=== PATIENT | male | born 1985 | race Caucasian/White ===

== ENCOUNTER 2019-06-20 12:59 | Emergency (ER) | payer BC, OTHER ==
[2019-06-20 13:39] VITALS: BP 177/101
[2019-06-20] MEDS ORDERED: Albuterol HFA INHALER* 8 gm MDI INH ONE (13:41)
--- NOTE | 2019-06-20 13:41 | UC ---
Respiratory Complaint HPI - HPI Summary HPI Summary: 34-year-old smoker who has had a cold over the past 2 weeks which has recovered and he continues with a mild cough however he needs a note for work stating that he can return to work. He had Covid testing last week and the results were back as negative 2 days ago. He states his employment required that he be cleared. I did advise him that we can state that his Covid test on the was negative. The patient denies any fever or chills, no sore throat. He states he only has a residual cough and he thinks it's more his smoker's cough than anything else. - History of Current Complaint Chief Complaint: UCGeneralIllness Stated Complaint: CONGEST,DRY COUGH Time Seen by Provider: 06/20/19 13:02 Hx Obtained From: Patient Onset/Duration: Gradual Onset, Lasting Days Timing: Intermittent Episodes Severity Initially: Moderate Severity Currently: Mild Pain Intensity: 0 Character: Cough: Nonproductive Aggravating Factors: Nothing Alleviating Factors: Nothing Associated Signs And Symptoms: Positive: Wheezing - Patient states occasionally at night he has some wheezing. - Allergies/Home Medications Allergies/Adverse Reactions: Allergies Allergy/AdvReac Type Severity Reaction Status Date / Time No Known Allergies Allergy Verified 04/01/15 10:50 Home Medications: Home Medications NK [No Home Medications Reported] 06/20/19 [History Confirmed 06/20/19] PMH/Surg Hx/FS Hx/Imm Hx Previously Healthy: Yes Cardiovascular History: Hypertension - Patient states he has a history of hypertension however he refuses to take any medicine for that. In the past, the patient has been on antihypertensive medication. - Surgical History Surgical History: Yes - Family History Known Family History: Positive: Unknown - Social History Occupation: Employed Full-time Lives: With Family Alcohol Use: None Substance Use Type: Marijuana Substance Use Comment - Amount & Last Used: occasional Smoking Status (MU): Heavy Every Day Tobacco Smoker Type: Cigarettes Amount Used/How Often: a pack per day Length of Time of Smoking/Using Tobacco: since age 14 Have You Smoked in the Last Year: Yes - Immunization History Most Recent Influenza Vaccination: unknown Most Recent Tetanus Shot: unknown Most Recent Pneumonia Vaccination: never Review of Systems All Other Systems Reviewed And Are Negative: Yes Respiratory: Positive: Cough - Cough with postnasal drainage and mild wheezing at night. He should states his cough today is no worse than usual. Is Patient Immunocompromised?: No Physical Exam Triage Information Reviewed: Yes Appearance: Well-Appearing, No Pain Distress, Well-Nourished Vital Signs: Initial Vital Signs Temp 97.9 F 06/20/19 13:38 Pulse 89 06/20/19 13:38 Resp 16 06/20/19 13:38 BP 177/101 06/20/19 13:38 Pulse Ox 100 06/20/19 13:38 Vital Signs Reviewed: Yes Eyes: Positive: Conjunctiva Clear ENT: Positive: Pharynx normal, TMs normal, Uvula midline. Negative: Sinus tenderness Neck: Positive: Supple, Nontender, No Lymphadenopathy Respiratory: Positive: No respiratory distress, No accessory muscle use, Wheezing - Very mild wheezing with forced expiration. Good air movement throughout all lung corral. Cardiovascular: Positive: RRR, No Murmur, Pulses Normal, Brisk Capillary Refill Musculoskeletal Exam: Normal Neurological Exam: Normal Psychological Exam: Normal Skin Exam: Normal Respiratory Course/Dx - Course Course Of Treatment: The patient is comfortable here. He was given an albuterol inhaler with a spacer here to do an initial 4 puffs using the spacer once he gets outside in his car and then may continue 2 puffs every 4-6 hours as needed for wheezing. Patient was advised to stop smoking. I spoke at length about the patient and his elevated blood pressure. He no longer has a primary care provider therefore the physician referral service was given to him to establish care with a primary care provider. - Differential Dx/Diagnosis Provider Diagnosis: Bronchitis, Elevated blood pressure reading with diagnosis of hypertension Discharge ED - Sign-Out/Discharge Documenting (check all that apply): Patient Departure All imaging exams completed and their final reports reviewed: No Studies - Discharge Plan Condition: Good Disposition: HOME Patient Education Materials: Acute Bronchitis (ED) Forms: *Work Release Referrals: [facility] [Outside] [facility] [place] [facility] [Outside] No Primary Care Phys,NOPCP [Primary Care Provider] - Additional Instructions: When you get into your car use 4 puffs of the albuterol with the AeroChamber and then after that you can do to puffs every 4-6 hours as needed for tight cough or wheezing. Stop smoking. Follow up at [facility] if no improvement in 3 or 4 days. You should be rechecked especially if you start running a fever. - Billing Disposition and Condition Condition: GOOD Disposition: Home - Attestation Statements Provider Attestation: This patient was not seen by me. I was available for consult. Chart reviewed. GERALD
== END 2019-06-20 13:56 | disposition home or self-care (01) ==
LOC: UCCORT 12:59
DX: J40 Bronchitis, not specified as acute or chronic (principal); I10 Essential (primary) hypertension; F17.210 Nicotine dependence, cigarettes, uncomplicated
CPT/HCPCS: 99212; A9270-GY; G0463